=== PATIENT | female | born 1965 | race Caucasian/White ===

== ENCOUNTER 2020-02-20 13:07 | Outpatient (REF) | payer OTHER, SELFPAY ==
[2020-02-20 13:26] LABS: COVID-19 Test Negative (Negative)
== END 2020-02-20 13:08 | disposition home or self-care (01) ==
LOC: HO.EMPCOV 13:07
PROVIDERS: PCP Internal Medicine; Visit Provider Internal Medicine
DX: Z20.828 Contact with and (suspected) exposure to other viral communicable diseases (principal)
CPT/HCPCS: 87635; C9803

== ENCOUNTER 2020-03-20 20:15 | Outpatient (REF) | payer OTHER, SELFPAY ==
[2020-03-20 20:24] LABS: COVID-19 Test Positive (Negative); IDNOW Serial# 9DD0AD1C
== END 2020-03-20 20:16 | disposition home or self-care (01) ==
LOC: HO.LAB 20:15
PROVIDERS: PCP Internal Medicine; Visit Provider Internal Medicine
DX: Z20.822 Contact with and (suspected) exposure to COVID-19 (principal)
CPT/HCPCS: 36415; 87635

== ENCOUNTER 2020-07-07 14:06 | Outpatient (REF) | payer OTHER, SELFPAY ==
[2020-07-07 14:25] LABS: MANUAL DIFF FLAG NO
[2020-07-07 14:39] LABS: Basophils Percent Auto 0.4 % (0-2); Eosinophils Absolute Auto 0.2 X10*3/uL (0.0-0.4); Eosinophils Percent Auto 3.3 % (0-4); Hematocrit 40.8 % (37-47); Hemoglobin 13.3 g/dl (12.0-16.0); Imm Gran Abs Auto 0.01 X10*3/uL (0.00-0.03); Imm Gran Pct Auto 0.2 % (0.0-0.4); Lymphocytes Absolute Auto 2.1 X10*3/uL (1.2-4.9); Lymphocytes Percent Auto 38.3 % (20-40); Mean Corpuscular HGB Conc 32.6 g/dl (31.0-35.0); Mean Corpuscular Hemoglobin 30.4 pg (27.0-33.0); Mean Corpuscular Volume 93.2 fL (80-98); Mean Platelet Volume 9.8 fL (9.4-12.3); Monocytes Absolute Auto 0.4 X10*3/uL (0.1-1.2); Monocytes Percent Auto 7.4 % (2-11); Neutrophils Absolute Auto 2.7 X10*3/uL (2.0-8.3); Neutrophils Percent Auto 50.4 % (45-73); Platelet Count 196 X10*3/uL (160-400); Red Blood Count 4.38 X10*6/uL (4.20-5.50); Red Cell Distribution Width 12.2 % (11.0-16.0); White Blood Count 5.4 X10*3/uL (4.8-10.8)
[2020-07-07 14:56] LABS: Alanine Aminotransferase 87 U/L (0-31); Albumin Level 4.1 g/dL (3.5-5.0); Alkaline Phosphatase 139 U/L (39-117); Anion Gap 10 (12-20); Aspartate Amino Transferase 69 U/L (5-31); Bilirubin Total 0.9 mg/dL (0.0-1.0); Blood Urea Nitrogen 19 mg/dL (9-16); Calcium 9.5 mg/dL (8.4-10.2); Carbon Dioxide 30 mmol/L (22-29); Chloride 104 mmol/L (96-108); Cholesterol 146 mg/dL; Estimated Glomerular Filt Rate 44; Glucose Random 116 mg/dL (60-115); HDL Cholesterol 67 mg/dL; LDL Cholesterol Calculated 66 mg/dl; Potassium 4.9 mmol/L (3.3-5.1); Sodium 139 mmol/L (135-145); Total Protein 6.8 g/dL (6.5-8.0); Triglycerides 65 mg/dL
== END 2020-07-07 14:07 | disposition home or self-care (01) ==
LOC: HO.LAB 14:06
PROVIDERS: PCP Internal Medicine; Visit Provider Internal Medicine
DX: Z00.01 Encounter for general adult medical examination with abnormal findings (principal); E03.9 Hypothyroidism, unspecified; E11.65 Type 2 diabetes mellitus with hyperglycemia; E78.2 Mixed hyperlipidemia; Z85.038 Personal history of other malignant neoplasm of large intestine
CPT/HCPCS: 36415; 80053; 80061; 82043; 82378; 84439; 84443; 85025

== ENCOUNTER 2020-08-18 15:13 | Outpatient (REF) | payer OTHER, SELFPAY ==
[2020-08-18 16:42] LABS: Thyroid Stimulating Hormone 0.91 uIU/mL (0.32-4.0)
[2020-08-18 16:49] LABS: Vitamin B12 399 pg/mL (200-900)
== END 2020-08-18 15:14 | disposition home or self-care (01) ==
LOC: HO.LNP 15:13
PROVIDERS: Visit Provider Internal Medicine
DX: E03.9 Hypothyroidism, unspecified (principal); R53.83 Other fatigue
CPT/HCPCS: 82607; 84443

== ENCOUNTER 2020-08-29 12:59 | Outpatient (REF) | payer OTHER, SELFPAY ==
--- NOTE | ~2020-08-29 | MR_ITS ---
EXAMINATION: MR BRAIN WITHOUT CONTRAST CLINICAL INFORMATION: Memory loss. Mental status changes. Post COVID. COMPARISON: None. TECHNIQUE: Multiplanar, multisequence imaging of the brain was performed without contrast. FINDINGS: No diffusion abnormalities are identified to suggest an acute infarct. The ventricles are normal in size. No mass effect or midline shift is seen. No brain parenchymal signal abnormality is noted. No extra-axial fluid collections are seen. The brainstem and cerebellum are normal. The gradient refocused acquisition is normal. The craniovertebral junction, marrow signal, and midline structures are normal. The major intracranial flow voids at the level of the [place] of Schmidt are preserved. The dural venous sinus flow voids are maintained. The mastoid air cells are well aerated. There is a small retention cyst in the right maxillary sinus. Moderate spondylosis partially visualized at the C3-C4 level. MR/MR head/brain wo con IMPRESSION: Normal MRI of the brain. No acute process.
== END 2020-08-29 13:00 | disposition home or self-care (01) ==
LOC: HO.MRI 12:59
PROVIDERS: PCP Internal Medicine; Visit Provider Internal Medicine
DX: R41.82 Altered mental status, unspecified (principal); R41.3 Other amnesia
CPT/HCPCS: 70551

== ENCOUNTER 2020-12-03 13:03 | Outpatient (REF) | payer OTHER, SELFPAY ==
[2020-12-03 13:23] LABS: IDNOW Serial# 08D9AD1C
[2020-12-03 13:24] LABS: COVID-19 Test Negative (Negative)
== END 2020-12-03 13:04 | disposition home or self-care (01) ==
LOC: HO.LNP 13:03
PROVIDERS: Visit Provider Internal Medicine
DX: Z20.822 Contact with and (suspected) exposure to COVID-19 (principal)
CPT/HCPCS: 87635

== ENCOUNTER 2021-01-08 16:40 | Outpatient (REF) | payer OTHER, SELFPAY ==
--- NOTE | ~2021-01-08 | US_ITS ---
EXAMINATION: US VENOUS ULTRASOUND WITH DOPPLER LOWER EXTREMITY, LEFT CLINICAL INFORMATION: Left lower extremity pain and swelling. Evaluate for a deep vein thrombosis. COMPARISON: None TECHNIQUE: Ultrasound of the deep veins is performed from the hip to the calf with compression sonography and color and pulse Doppler assessment. Spectral analysis with color-flow imaging is performed. FINDINGS: There is normal venous compression and respiratory variation and augmented flow. The visualized common femoral vein, superficial femoral vein, profunda femoral vein, popliteal vein, and the trifurcation region shows no evidence of deep venous thrombosis. There is no significant popliteal fossa cyst. Peroneal vein not well seen. If the patient's symptoms persist, followup ultrasound in 5 days 7 days might be of value to exclude proximal propagation from a non-visualized calf vein. US/US venous duplex LE IMPRESSION: No DVT demonstrated in the left lower extremity. Peroneal vein not well seen.
== END 2021-01-08 16:41 | disposition home or self-care (01) ==
LOC: HO.US 16:40
PROVIDERS: PCP Internal Medicine; Visit Provider Internal Medicine
DX: R60.0 Localized edema (principal); M79.605 Pain in left leg
CPT/HCPCS: 93971

== ENCOUNTER 2021-03-09 20:18 | Outpatient (REF) | payer OTHER, SELFPAY ==
[2021-03-09 20:43] LABS: COVID-19 Test Negative (Negative)
== END 2021-03-09 20:19 | disposition home or self-care (01) ==
LOC: HO.LNP 20:18
PROVIDERS: Visit Provider Internal Medicine
DX: Z20.822 Contact with and (suspected) exposure to COVID-19 (principal)
CPT/HCPCS: 87635

== ENCOUNTER 2021-03-23 17:08 | Outpatient (REF) | payer OTHER, SELFPAY ==
[2021-03-23 17:30] LABS: COVID-19 Test Negative (Negative)
== END 2021-03-23 17:09 | disposition home or self-care (01) ==
LOC: HO.LAB 17:08
PROVIDERS: Visit Provider Internal Medicine
DX: Z20.822 Contact with and (suspected) exposure to COVID-19 (principal)
CPT/HCPCS: 87635

== ENCOUNTER 2021-06-16 15:30 | Outpatient (REF) | payer OTHER, SELFPAY ==
[2021-06-16 15:47] LABS: Strep A Nucleic Acid Negative (Negative)
== END 2021-06-16 15:31 | disposition home or self-care (01) ==
LOC: HO.LAB 15:30
PROVIDERS: Visit Provider Internal Medicine
DX: Z11.2 Encounter for screening for other bacterial diseases (principal)
CPT/HCPCS: 36415; 87651

== ENCOUNTER 2021-07-06 14:20 | Outpatient (REF) | payer OTHER, SELFPAY ==
[2021-07-06 14:41] LABS: MANUAL DIFF FLAG NO
[2021-07-06 14:45] LABS: Hematocrit 40.8 % (37.0-47.0); Hemoglobin 13.3 g/dl (12.0-16.0); Imm Gran Pct Auto 0.3 % (0.0-0.4); Mean Corpuscular HGB Conc 32.6 g/dl (31.0-35.0); Mean Corpuscular Hemoglobin 30.9 pg (27.0-33.0); Mean Corpuscular Volume 94.9 fL (80.0-98.0); Neutrophils Percent Auto 54.1 % (45-73); Platelet Count 213 X10*3/uL (160-400); Red Cell Distribution Width 12.5 % (11.0-16.0); White Blood Count 6.2 X10*3/uL (4.8-10.8)
[2021-07-06 14:46] LABS: Basophils Absolute Auto 0.1 X10*3/uL (0.0-0.2); Basophils Percent Auto 0.8 % (0-2); Eosinophils Absolute Auto 0.3 X10*3/uL (0.0-0.4); Imm Gran Abs Auto 0.02 X10*3/uL (0.00-0.03); Lymphocytes Absolute Auto 2.1 X10*3/uL (1.2-4.9); Lymphocytes Percent Auto 32.9 % (20-40); Monocytes Absolute Auto 0.5 X10*3/uL (0.1-1.2); Monocytes Percent Auto 7.9 % (2-11); Neutrophils Absolute Auto 3.4 x10*3/uL (2.0-8.3)
[2021-07-06 15:25] LABS: Alanine Aminotransferase 107 U/L (0-31); Albumin Level 4.1 g/dL (3.5-5.0); Alkaline Phosphatase 114 U/L (39-117); Anion Gap 11 (12-20); Aspartate Amino Transferase 68 U/L (5-31); Blood Urea Nitrogen 18 mg/dL (9-16); Calcium 9.6 mg/dL (8.4-10.2); Carbon Dioxide 28 mmol/L (22-29); Chloride 104 mmol/L (96-108); Cholesterol 163 mg/dL; Estimated Glomerular Filt Rate 36; Glucose Random 170 mg/dL (60-115); HDL Cholesterol 68 mg/dL; LDL Cholesterol Calculated 74 mg/dl; Potassium 5.2 mmol/L (3.3-5.1); Sodium 138 mmol/L (135-145); Total Protein 6.9 g/dL (6.5-8.0); Triglycerides 106 mg/dL
[2021-07-06 15:35] LABS: Thyroid Stimulating Hormone 5.11 uIU/mL (0.32-4.0)
[2021-07-06 21:30] LABS: Creatinine Urine 42.84 mg/dL; Microalbum/Creatinine Ratio Ur 16.3 ug/mg cr
== END 2021-07-06 14:21 | disposition home or self-care (01) ==
LOC: HO.LAB 14:20
PROVIDERS: Visit Provider Internal Medicine
DX: Z00.00 Encounter for general adult medical examination without abnormal findings (principal); R10.9 Unspecified abdominal pain; C18.9 Malignant neoplasm of colon, unspecified; E11.65 Type 2 diabetes mellitus with hyperglycemia; E03.9 Hypothyroidism, unspecified
CPT/HCPCS: 36415; 80053; 80061; 82043; 82378; 84443; 85025

== ENCOUNTER 2021-07-07 13:58 | Outpatient (REF) | payer OTHER, SELFPAY ==
--- NOTE | ~2021-07-07 | CT_ITS ---
EXAMINATION: CT ABDOMEN AND PELVIS WITHOUT CONTRAST CLINICAL INFORMATION: Abdominal pain. Rule out diverticulitis. COMPARISON: Previous CT of the abdomen and pelvis April 2011 TECHNIQUE: Multidetector volumetric imaging was performed from the superior aspect of the liver through the pubic symphysis. Sagittal and coronal reformatted images were obtained on the technologist's workstation. This CT examination was performed using dose optimization techniques as appropriate, variously including the following: *Automated exposure control *Adjustment of mA and/or kV according to patient size (this includes techniques or standardized protocols for targeted exams where dose is matched to indication/reason for exam; i.e. extremities or head) *Use of iterative reconstruction technique DLP: 767 mGy-cm FINDINGS: LUNG BASES: There is subsegmental atelectasis at the right lung base. LIVER, GALLBLADDER, AND BILIARY TREE: The liver is normal in size, shape, and attenuation. No focal hepatic lesion or biliary ductal dilatation is present. The gallbladder is unremarkable with no evidence of radiopaque gallstones, gallbladder wall thickening, or obvious pericholecystic inflammatory changes. PANCREAS: Unremarkable. SPLEEN: Unremarkable. ADRENAL GLANDS: Unremarkable. KIDNEYS AND URETERS: The kidneys are normal in size, shape, and attenuation. No hydronephrosis, hydroureter, or calculi seen. No perinephric stranding. BLADDER: Not optimally distended. GASTROINTESTINAL TRACT: There are postsurgical changes following right colectomy. There is stool in the colon. There is mild diverticulosis. No evidence of diverticulitis is seen. There is a small duodenal diverticulum adjacent to the head of the pancreas. Small and large bowel is otherwise unremarkable. ABDOMINAL WALL: Multiple ventral hernias containing fat and umbilical hernia containing fat. LYMPH NODES: Normal. VASCULAR: Unremarkable. PELVIC VISCERA: Unremarkable. OSSEOUS STRUCTURES: There are degenerative changes of the spine.. CT/CT abdomen pelvis wo con IMPRESSION: Postsurgical changes following right colectomy. Constipation. Mild diverticulosis. No evidence of diverticulitis. Multiple ventral hernias containing fat and umbilical fat. Fleischner guidelines were followed.
[2021-07-07] MEDS: Barium Sulfate Oral (Mocha) 450 ML ORAL.SUSP 900 ML PO (16:20)
== END 2021-07-07 13:59 | disposition home or self-care (01) ==
LOC: HO.CT 13:58
PROVIDERS: PCP Internal Medicine; Visit Provider Internal Medicine
DX: R10.9 Unspecified abdominal pain (principal)
CPT/HCPCS: 74176

== ENCOUNTER 2021-10-12 08:59 | Outpatient (REF) | payer OTHER, SELFPAY ==
--- NOTE | ~2021-10-12 | US_ITS ---
EXAMINATION: US ABDOMEN COMPLETE CLINICAL INFORMATION: Abnormal results of liver function studies. COMPARISON: CT abdomen and pelvis without contrast dated 07/07/2021. Renals only ultrasound dated 04/25/2019. X-ray abdomen dated 12/29/2009. TECHNIQUE: Real-time imaging of the abdominal viscera. FINDINGS: PANCREAS: Normal. ABDOMINAL AORTA: The proximal, mid, and distal segments are normal in caliber. INFERIOR VENA CAVA: Visualized portions are normal. LIVER: Liver echotexture is slightly increased. The liver is normal in size. The liver contour is normal. No focal hepatic lesion. There is no intrahepatic biliary duct dilatation seen. GALLBLADDER: There is mobile echogenic material seen in the gallbladder questionable for sludge versus small gallstones. Gallbladder wall is normal thickness measuring 0.3 cm. There is no pericholecystic fluid. COMMON BILE DUCT: Normal in caliber measuring 0.39 cm in diameter. RIGHT KIDNEY: Normal. No hydronephrosis. No renal calculi or focal parenchymal lesions. The kidney measures 11.2 cm in maximum dimension. LEFT KIDNEY: Normal. No hydronephrosis. No renal calculi or focal parenchymal lesions. The kidney measures 10.0 cm in maximum dimension. SPLEEN: Normal. The spleen measures 10.9 cm in maximum dimension. FREE FLUID: None. US/US abdomen complete IMPRESSION: Question small stones or sludge in the gallbladder. Slightly echogenic liver.
== END 2021-10-12 09:00 | disposition home or self-care (01) ==
LOC: HO.US 08:59
PROVIDERS: PCP Internal Medicine; Visit Provider Internal Medicine
DX: R94.5 Abnormal results of liver function studies (principal)
CPT/HCPCS: 76700

== ENCOUNTER 2021-11-27 16:58 | Outpatient (REF) | payer OTHER, SELFPAY ==
[2021-11-27 17:04] LABS: MANUAL DIFF FLAG NO
[2021-11-27 17:08] LABS: Basophils Percent Auto 0.5 % (0-2); Eosinophils Absolute Auto 0.2 X10*3/uL (0.0-0.4); Eosinophils Percent Auto 3.4 % (0-4); Hematocrit 42.1 % (37.0-47.0); Hemoglobin 13.3 g/dl (12.0-16.0); Imm Gran Abs Auto 0.01 X10*3/uL (0.00-0.03); Imm Gran Pct Auto 0.2 % (0.0-0.4); Lymphocytes Percent Auto 35.9 % (20-40); Mean Corpuscular HGB Conc 31.6 g/dl (31.0-35.0); Mean Corpuscular Hemoglobin 29.8 pg (27.0-33.0); Mean Corpuscular Volume 94.2 fL (80.0-98.0); Mean Platelet Volume 9.4 fL (9.4-12.3); Monocytes Absolute Auto 0.5 X10*3/uL (0.1-1.2); Monocytes Percent Auto 8.8 % (2-11); Neutrophils Absolute Auto 2.9 x10*3/uL (2.0-8.3); Neutrophils Percent Auto 51.2 % (45-73); Platelet Count 190 X10*3/uL (160-400); Red Blood Count 4.47 X10*6/uL (4.20-5.50); Red Cell Distribution Width 12.7 % (11.0-16.0); White Blood Count 5.7 X10*3/uL (4.8-10.8)
[2021-11-27 17:28] LABS: Alanine Aminotransferase 43 U/L (0-31); Albumin Level 4.2 g/dL (3.5-5.0); Alkaline Phosphatase 114 U/L (39-117); Anion Gap 16 (12-20); Aspartate Amino Transferase 41 U/L (5-31); Blood Urea Nitrogen 13 mg/dL (9-16); Calcium 9.2 mg/dL (8.4-10.2); Carbon Dioxide 27 mmol/L (22-29); Chloride 101 mmol/L (96-108); Estimated Glomerular Filt Rate 44; Glucose Random 187 mg/dL (60-115); Potassium 4.7 mmol/L (3.3-5.1); Sodium 139 mmol/L (135-145); Total Protein 6.8 g/dL (6.5-8.0)
[2021-11-27 17:29] LABS: Troponin-I High Sensitivity < 3.5 ng/L (<3.5-17.0)
== END 2021-11-27 16:59 | disposition home or self-care (01) ==
LOC: HO.LAB 16:58
PROVIDERS: PCP Internal Medicine; Visit Provider Internal Medicine
DX: R53.83 Other fatigue (principal); E03.9 Hypothyroidism, unspecified; R07.9 Chest pain, unspecified
CPT/HCPCS: 36415; 80053; 84443; 84484; 85025

== ENCOUNTER → 2021-12-15 07:32 | Outpatient (REF) | payer OTHER, SELFPAY ==
--- NOTE | 2021-12-15 07:37 | HM_ITS ---
* Total monitoring time 3 days. * Underlying rhythm is sinus. Average rate 66/Min. Range 55 to 89/Min. * Rare supraventricular ectopy. Minimal burden. Very brief runs. * Extremely rare ventricular ectopy. * No pauses or AV blocks. * Patient diary mentions 'heavy beats' and 'indigestion', but no clear Holter findings to associated with. MTDD
== END ==
LOC: HO.CARD 07:32
PROVIDERS: Visit Provider Internal Medicine
DX: R00.2 Palpitations (principal)
CPT/HCPCS: 93242

== ENCOUNTER 2022-02-02 11:29 | Outpatient (REF) | payer OTHER, SELFPAY ==
[2022-02-03 12:57] LABS: Influenza A PCR NEGATIVE (Negative); Influenza B PCR NEGATIVE (Negative); Resp Syncy Virus RNA Qual PCR NEGATIVE (Negative); SARS COV2 PCR INHOUSE NEGATIVE (Negative)
== END 2022-02-02 11:30 | disposition home or self-care (01) ==
LOC: HO.LNP 11:29
PROVIDERS: Visit Provider Hospitalist
DX: J98.8 Other specified respiratory disorders (principal); Z20.822 Contact with and (suspected) exposure to COVID-19
CPT/HCPCS: 0241U

== ENCOUNTER 2022-05-07 16:45 | Outpatient (REF) | payer OTHER, SELFPAY ==
--- NOTE | ~2022-05-07 | XR_ITS ---
EXAMINATION: XR CHEST CLINICAL INFORMATION: Cough, SOB COMPARISON: None TECHNIQUE: 2 views of the chest were obtained. FINDINGS: No significant abnormality is noted involving the heart, lungs, mediastinum, bony thorax or soft tissues. XR/XR chest 2V IMPRESSION: Unremarkable chest examination.
[2022-05-07 16:57] LABS: MANUAL DIFF FLAG NO
[2022-05-07 17:21] LABS: Basophils Percent Auto 0.7 % (0-2); Eosinophils Absolute Auto 0.3 X10*3/uL (0.0-0.4); Eosinophils Percent Auto 4.3 % (0-4); Hematocrit 40.1 % (37.0-47.0); Hemoglobin 12.8 g/dl (12.0-16.0); Imm Gran Abs Auto 0.01 X10*3/uL (0.00-0.03); Imm Gran Pct Auto 0.2 % (0.0-0.4); Lymphocytes Absolute Auto 2.4 X10*3/uL (1.2-4.9); Lymphocytes Percent Auto 40.2 % (20-40); Mean Corpuscular HGB Conc 31.9 g/dl (31.0-35.0); Mean Corpuscular Volume 93.9 fL (80.0-98.0); Mean Platelet Volume 10.1 fL (9.4-12.3); Monocytes Absolute Auto 0.5 X10*3/uL (0.1-1.2); Neutrophils Absolute Auto 2.7 x10*3/uL (2.0-8.3); Neutrophils Percent Auto 45.6 % (45-73); Platelet Count 216 X10*3/uL (160-400); Red Blood Count 4.27 X10*6/uL (4.20-5.50); Red Cell Distribution Width 12.5 % (11.0-16.0)
[2022-05-07 18:10] LABS: Alanine Aminotransferase 20 U/L (0-31); Albumin Level 3.9 g/dL (3.5-5.0); Alkaline Phosphatase 130 U/L (39-117); Anion Gap 14 (12-20); Aspartate Amino Transferase 23 U/L (5-31); Bilirubin Total 1.4 mg/dL (0.0-1.0); Blood Urea Nitrogen 21 mg/dL (9-16); Calcium 9.4 mg/dL (8.4-10.2); Carbon Dioxide 28 mmol/L (22-29); Chloride 100 mmol/L (96-108); Estimated Glomerular Filt Rate 35; Glucose Random 244 mg/dL (60-115); Potassium 5.1 mmol/L (3.3-5.1); Sodium 137 mmol/L (135-145); Total Protein 6.5 g/dL (6.5-8.0)
[2022-05-07 18:25] LABS: Thyroid Stimulating Hormone 9.34 uIU/mL (0.32-4.0)
== END 2022-05-07 16:46 | disposition home or self-care (01) ==
LOC: HO.LAB 16:45
PROVIDERS: PCP Internal Medicine; Visit Provider Internal Medicine
DX: M79.10 Myalgia, unspecified site (principal); E03.9 Hypothyroidism, unspecified; R06.02 Shortness of breath; R05.9 Cough, unspecified
CPT/HCPCS: 36415; 71046; 80053; 82550; 84443; 85025

== ENCOUNTER 2022-05-10 18:35 | Outpatient (REF) | payer OTHER, SELFPAY ==
[2022-05-10 19:38] LABS: Troponin-I High Sensitivity < 3.5 ng/L (<3.5-17.0)
== END 2022-05-10 18:36 | disposition home or self-care (01) ==
LOC: HO.LAB 18:35
PROVIDERS: PCP Internal Medicine; Visit Provider Internal Medicine
DX: R74.8 Abnormal levels of other serum enzymes (principal)
CPT/HCPCS: 36415; 84484

== ENCOUNTER 2022-05-27 12:44 | Outpatient (REF) | payer OTHER, SELFPAY ==
[2022-05-27 14:09] LABS: Alanine Aminotransferase 52 U/L (0-31); Albumin Level 3.8 g/dL (3.5-5.0); Alkaline Phosphatase 122 U/L (39-117); Anion Gap 9 (12-20); Aspartate Amino Transferase 46 U/L (5-31); Bilirubin Total 1.1 mg/dL (0.0-1.0); Blood Urea Nitrogen 32 mg/dL (9-16); Calcium 9.3 mg/dL (8.4-10.2); Carbon Dioxide 31 mmol/L (22-29); Chloride 103 mmol/L (96-108); Estimated Glomerular Filt Rate 35; Glucose Random 287 mg/dL (60-115); Potassium 5.4 mmol/L (3.3-5.1); Sodium 138 mmol/L (135-145); Total Protein 6.2 g/dL (6.5-8.0)
== END 2022-05-27 12:45 | disposition home or self-care (01) ==
LOC: HO.10HDL 12:44
PROVIDERS: Visit Provider Internal Medicine
DX: K59.00 Constipation, unspecified (principal); N17.9 Acute kidney failure, unspecified
CPT/HCPCS: 36415; 80053; 82550

== ENCOUNTER 2022-06-15 11:08 | Outpatient (REF) | payer OTHER, SELFPAY ==
[2022-06-15 14:03] LABS: Alanine Aminotransferase 16 U/L (0-31); Albumin Level 3.7 g/dL (3.5-5.0); Alkaline Phosphatase 101 U/L (39-117); Anion Gap 11 (12-20); Aspartate Amino Transferase 22 U/L (5-31); Bilirubin Total 0.9 mg/dL (0.0-1.0); Blood Urea Nitrogen 12 mg/dL (9-16); Calcium 9.1 mg/dL (8.4-10.2); Carbon Dioxide 29 mmol/L (22-29); Chloride 104 mmol/L (96-108); Estimated Glomerular Filt Rate 45; Glucose Random 220 mg/dL (60-115); Potassium 5.4 mmol/L (3.3-5.1); Sodium 139 mmol/L (135-145); Total Protein 6.1 g/dL (6.5-8.0)
[2022-06-15 14:19] LABS: Thyroid Stimulating Hormone 3.31 uIU/mL (0.32-4.0)
[2022-06-15 14:26] LABS: Erythrocyte Sedimentation Rate 20 MM/HR (0-20)
== END 2022-06-15 11:09 | disposition home or self-care (01) ==
LOC: HO.10HDL 11:08
PROVIDERS: Visit Provider Internal Medicine
DX: M79.10 Myalgia, unspecified site (principal); E03.9 Hypothyroidism, unspecified
CPT/HCPCS: 36415; 80053; 82550; 84443; 85652

== ENCOUNTER → 2022-06-29 09:23 | Outpatient (REF) | payer OTHER, SELFPAY ==
--- NOTE | ~2022-06-29 | NM_ITS ---
EXERCISE MYOCARDIAL PERFUSION STUDY INDICATION: Chest pain, assess for coronary disease ischemia TECHNIQUE: The patient was brought in for an exercise perfusion study on 06/29/2022. Patient performed exercise as per Bijan protocol and was injected 30 mCi of sestamibi once target heart rate was achieved. Images were obtained using the SPECT gamma camera interlaced with the gating device. Images were obtained in supine position. Resting perfusion study was performed on 06/30/2022. Patient was administered 30 mCi of sestamibi intravenously at rest. Images were then obtained in supine position. Images were processed with the software and compared side to side in short axis, horizontal long axis and vertical long axis views. Total DLP 133mGy-cm. FINDINGS: Raw images were reviewed. The stress perfusion study showed no significant perfusion abnormality. Both uncorrected as well as CT attenuation corrected images were reviewed. The gated study shows normal LV systolic function with calculated LVEF of 65%. LV cavity is normal in size. The gated study shows normal wall thickening and contraction of segments. Resting study shows diminished tracer uptake in the mid to distal anterior wall and apical part of inferior wall. There is improvement with CT attenuation correction. There is also adjacent subdiaphragmatic tracer uptake. Gating at rest reveals normal wall motion with ejection fraction at 49%. But visually, appears higher. The findings are consistent with no clear evidence of any reversible or fixed perfusion defects. NM/NM kayla perf SPECT rest or str IMPRESSION: 1. Myocardial perfusion imaging study shows probably normal myocardial perfusion. No definitive evidence of any ischemia or infarction. 2. Gated LVEF is 62% during stress. 3. Transient ischemic dilatation not present. EKG component of the test reported separately.
--- NOTE | 2022-06-29 09:29 | CA_ITS ---
Acquisition Time: 2022-06-29 09:43:12 Total Exercise Time: 00:04:31 Test Indications: CP Medications: SEE H Protocol: CRAIG Max HR: 144 BPM 88% of Pred: 162 BPM Max BP: 172/088 mmHG Max Work Load: 5.5 METS Exercise stress test with exercise 4 min 31 sec of Craig protocol ( speed in stage 2 reduced for last minute), achieving 88% MPHR, with moderate sob and leg fatigue, no chest pains, with frequent isolated PVCs, mostly in stage 2, with normotensive response to exercise, with artifact at peak exercise and ST depressions inferiorly can't be excluded. No ischemic changes in recovery. Breathing imporved in recovery. Nuclear images pending. Test reviewed with Dr Garza. Referred By: Stewart Ellis Overread By: KELLEN DREW
== END ==
LOC: HO.CARD 09:23
PROVIDERS: Visit Provider Internal Medicine
DX: R07.9 Chest pain, unspecified (principal)
CPT/HCPCS: 78451; 93017; A9500

== ENCOUNTER 2022-07-07 11:23 | Outpatient (REF) | payer OTHER, SELFPAY ==
[2022-07-07 14:08] LABS: Alanine Aminotransferase 9 U/L (0-31); Albumin Level 3.9 g/dL (3.5-5.0); Alkaline Phosphatase 97 U/L (39-117); Anion Gap 11 (12-20); Aspartate Amino Transferase 17 U/L (5-31); Bilirubin Total 0.8 mg/dL (0.0-1.0); Blood Urea Nitrogen 15 mg/dL (9-16); Calcium 9.6 mg/dL (8.4-10.2); Carbon Dioxide 31 mmol/L (22-29); Chloride 104 mmol/L (96-108); Cholesterol 221 mg/dL; Estimated Glomerular Filt Rate 48; Glucose Random 68 mg/dL (60-115); HDL Cholesterol 64 mg/dL; LDL Cholesterol Calculated 133 mg/dl; Potassium 4.7 mmol/L (3.3-5.1); Sodium 141 mmol/L (135-145); Total Protein 6.4 g/dL (6.5-8.0); Triglycerides 121 mg/dL
[2022-07-07 14:52] LABS: Microalbumin Urine < 5.0 mg/L
[2022-07-09 12:29] LABS: Calcium (PTHI) 9.4 mg/dL (8.6-10.4); PTHI 29 pg/mL (16-77)
== END 2022-07-07 11:24 | disposition home or self-care (01) ==
LOC: HO.10HDL 11:23
PROVIDERS: Visit Provider Internal Medicine
DX: N18.9 Chronic kidney disease, unspecified (principal); E78.2 Mixed hyperlipidemia
CPT/HCPCS: 36415; 80053; 80061; 82043; 82550; 83970

== ENCOUNTER 2022-08-06 11:27 | Outpatient (REF) | payer OTHER, SELFPAY ==
[2022-08-06 13:31] LABS: Alanine Aminotransferase 33 U/L (0-31); Albumin Level 3.9 g/dL (3.5-5.0); Alkaline Phosphatase 109 U/L (39-117); Anion Gap 12 (12-20); Aspartate Amino Transferase 39 U/L (5-31); Blood Urea Nitrogen 23 mg/dL (9-16); Calcium 8.9 mg/dL (8.4-10.2); Carbon Dioxide 25 mmol/L (22-29); Chloride 104 mmol/L (96-108); Estimated Glomerular Filt Rate 24; Glucose Fasting 193 mg/dL (60-99); Potassium 4.2 mmol/L (3.3-5.1); Sodium 137 mmol/L (135-145); Total Protein 6.6 g/dL (6.5-8.0)
== END 2022-08-06 11:28 | disposition home or self-care (01) ==
LOC: HO.10HDL 11:27
PROVIDERS: Visit Provider Internal Medicine
DX: I10 Essential (primary) hypertension (principal); E03.9 Hypothyroidism, unspecified
CPT/HCPCS: 36415; 80053; 82550

== ENCOUNTER 2022-09-18 11:24 | Outpatient (AMB) | payer OTHER, SELFPAY ==
--- NOTE | 2022-09-18 11:25 | AM.OFFWIN_ITS ---
Intake Vital Signs 09/18/22 11:28 Height 5 ft 4 in BP 122/72 Blood Pressure Location Rt brachial Position Sitting Pulse 74 Pulse Source Pulse Oximeter Temp 98.2 F Temp Source Oral Pulse Oximetry (%) 98 Oxygen Delivery Method Room Air Intake Visit Reasons: EP Respiratory, rib pain (lobby,masked) Intake Note: pt is here for c/o respiratory issue and rib pain Patient Tobacco Use Status: Former Tobacco user Allergies morphine [MORPHINE] Allergy (Severe, Verified 09/18/22 11:33) SWELLING, anaphylaxis hydromorphone [Dilaudid] Allergy (Unknown, Verified 09/18/22 11:33) anaphylaxis kiwi [KIWI] Allergy (Unknown, Verified 09/18/22 11:33) MOUTH SWELLING oxycodone Allergy (Unknown, Verified 09/18/22 11:33) oral swelling From Dilaudid Allergy (Severe, Uncoded 02/02/22 11:05) SWELLING kiwi Allergy (Unknown, Uncoded 02/02/22 11:05) swelling Medication List - Last Reconciled 09/18/22 by Coy Salas PA-C bupropion HCl 300 mg PO QAM furosemide 20 mg PO DAILY insulin lispro (Humalog U-100 Insulin) 75 units subcut DAILY levothyroxine 150 mcg PO DAILY pantoprazole 40 mg PO DAILY rosuvastatin 40 mg PO DAILY sucralfate 1 g PO QID valsartan 160 mg PO DAILY Do you need a note to return to daycare/school/sports/work: No HPI EP Respiratory, rib pain (lobby,masked) HPI Details Patient is a 57-year-old female reporting cough and bilateral rib pain over the last 4 days. started with Soar throat. She reports she has been coughing so much her bilateral ribs have been hurting. Patient has a past medical history significant for hypothyroidism, GERD, type 1 diabetes hyperlipidemia and hypertension. has not been using med OTC for he cough. [facility] Social History Patient Tobacco Use Status: Former Tobacco user Review of Systems Const Denies headache(s) Eyes Denies loss of vision ENT Denies vertigo, Denies dizziness, Denies headache(s) and Denies sore throat Card Denies chest pain, Denies leg edema and Denies lightheadedness Resp Reports cough, Denies hemoptysis and Denies wheezing GI Denies abdominal pain, Denies melena, Denies constipation, Denies diarrhea and Denies vomiting Denies urinary frequency, Denies dysuria and Denies urinary urgency Musc Denies arthralgias, Denies joint swelling, Denies numbness and Denies tingling Neuro Denies Abnormal speech present, Denies behavioral changes, Denies vertigo, Denies dizziness, Denies headache(s), Denies loss of vision, Denies memory loss, Denies numbness and Denies tingling Psych Denies anxiety, Denies behavioral changes, Denies depression, Denies memory loss and Denies panic attacks Qasim/Lymph Denies easy bleeding and Denies easy bruising Aller/Immun Denies wheezing Physical Exam Vital Signs: Last Vital Signs Temp 98.2 F 09/18/22 11:28 Pulse 74 09/18/22 11:28 BP 122/72 09/18/22 11:28 Pulse Ox 98 09/18/22 11:28 Oxygen Delivery Method Room Air 09/18/22 11:28 Const General: healthy appearing, no acute distress, alert and awake Nutritional Appearance: well nourished Orientation/consciousness: oriented to person, oriented to place and oriented to time HEENT Ears: TM's normal bilaterally General nose exam: Normal nasal mucous membranes and turbinates present Eyes Conjunctivae: conjunctivae normal Sclerae: sclerae normal Pupils: Equal, round and reactive pupils present Neck Neck: Yes no lymphadenopathy and Yes no JVD Thyroid: Thyroid normal Carotids: no bruits Resp Other: OCCASIONAL COUGH DURING EXAM Effort & Inspection: normal respiratory effort and not tachypneic Auscultation: no crackles, no rales, no rhonchi and no wheezes Cardio Rate: regular rate Rhythm: regular rhythm Heart sounds: no murmurs and normal S1 and S2 GI Palpation (GI): Soft to palpation, nontender, no hepatomegaly and no sp lenomegaly Auscultation: normal bowel sounds Skin General skin exam: no rashes or lesions noted and dry skin Neuro General: oriented to person, oriented to place and oriented to time Cranial nerves: Yes Equal, round and reactive pupils present Speech: No Abnormal speech present Gait exam (Neuro): Normal gait present Motor exam (neuro): no tremor noted Extrem Right upper extremity: full ROM Left upper extremity: full ROM Right lower extremity: full ROM; no edema Left lower extremity: full ROM; no edema Psych Mental Status: mental status grossly normal Speech and movement: Normal speech and movement present Affect: normal affect Attitude: cooperative Thought process: Normal thought process present Assessment & Plan Assessment & Plan (1) Bronchitis: Code(s): J40 - Bronchitis, not specified as acute or chronic Plan: Patient's signs symptoms are most consistent with an acute bronchitis. Seems to have had a prodrome symptoms with sore throat and episode of vomiting. Will send for x-ray to evaluate for pulmonary infiltrate. Will treat empirically with Augmentin due to her comorbidities Orders: Orders XR chest 2V Today J40 - Bronchitis, not specified as acute or chronic Medications: New albuterol sulfate 90 mcg/actuation 1 inh inhalation QID 30 days PRN 8.5 grams 0RF shortness of breath or wheezing J40 - Bronchitis, not specified as acute or chronic amoxicillin-pot clavulanate 875-125 mg 1 tab PO BID 7 days 14 tabs 0RF J40 - Bronchitis, not specified as acute or chronic benzonatate 200 mg PO TID 5 days 15 caps 0RF J40 - Bronchitis, not specified as acute or chronic, R05.9 - Cough, unspecified Coding Level of Care Code Est Pt Level 3 (06726) Diagnoses Bronchitis J40
[2022-09-18 11:28] VITALS: BP 122/72; PULSE 74; TEMP 36.8; O2SAT 98
== END 2022-09-18 12:25 | disposition home or self-care (01) ==
PROVIDERS: PCP Internal Medicine; Visit Provider Physician Assistant
DX: J40 Bronchitis, not specified as acute or chronic (principal)
CPT/HCPCS: 99051; 99213

== ENCOUNTER 2022-09-18 11:55 | Outpatient (REF) | payer OTHER, SELFPAY ==
--- NOTE | ~2022-09-18 | XR_ITS ---
EXAMINATION: CHEST 2 VIEWS CLINICAL INFORMATION: J40 - Bronchitis, not specified as acute or chronic. COMPARISON: 05/07/2022 chest x-ray. TECHNIQUE: PA and lateral views of the chest obtained. FINDINGS: The lungs are well expanded. No focal infiltrate, effusion, edema, or pneumothorax. Cardiac and mediastinal silhouettes are within normal limits for technique. No acute bony abnormality seen XR/XR chest 2V IMPRESSION: No evidence of acute disease
[2022-09-18 13:37] LABS: Estimated Average Glucose 166 mg/dL; Hemoglobin A1c % 7.4 %
[2022-09-18 13:43] LABS: Hematocrit 41.7 % (37.0-47.0); Hemoglobin 13.1 g/dl (12.0-16.0); Mean Corpuscular HGB Conc 31.4 g/dl (31.0-35.0); Mean Corpuscular Hemoglobin 30.7 pg (27.0-33.0); Mean Corpuscular Volume 97.7 fL (80.0-98.0); Mean Platelet Volume 10.7 fL (9.4-12.3); Platelet Count 184 X10*3/uL (160-400); Red Blood Count 4.27 X10*6/uL (4.20-5.50); White Blood Count 5.2 X10*3/uL (4.8-10.8)
[2022-09-18 13:54] LABS: Alanine Aminotransferase 36 U/L (0-31); Albumin Level 4.1 g/dL (3.5-5.0); Alkaline Phosphatase 111 U/L (39-117); Anion Gap 14 (12-20); Aspartate Amino Transferase 36 U/L (5-31); Bilirubin Total 0.9 mg/dL (0.0-1.0); Blood Urea Nitrogen 20 mg/dL (9-16); Carbon Dioxide 32 mmol/L (22-29); Chloride 99 mmol/L (96-108); Estimated Glomerular Filt Rate 32; Glucose Random 259 mg/dL (60-115); Potassium 4.9 mmol/L (3.3-5.1); Sodium 140 mmol/L (135-145); Total Protein 7.2 g/dL (6.5-8.0)
[2022-09-18 14:09] LABS: Thyroid Stimulating Hormone 13.25 uIU/mL (0.32-4.0)
== END 2022-09-18 11:56 | disposition home or self-care (01) ==
LOC: HO.HMGCX 11:55
PROVIDERS: Absent Provider Physician Assistant; PCP Internal Medicine; Visit Provider Internal Medicine
DX: E10.65 Type 1 diabetes mellitus with hyperglycemia (principal); J40 Bronchitis, not specified as acute or chronic
CPT/HCPCS: 36415; 71046; 80053; 83036; 84443; 85027